=== PATIENT | female | born 1960 | race Caucasian/White ===

== ENCOUNTER 2018-03-06 23:23 | Emergency (ER) | payer MEDICARE ==
[~2018-03-06] VITALS: Ht 172.7 cm; Wt 122.7 kg
[2018-03-07 01:36] VITALS: BP 155/87
== END 2018-03-07 01:39 | disposition home or self-care (01) ==
LOC: ER 23:24
DX: M19.071 Primary osteoarthritis, right ankle and foot (principal); J45.909 Unspecified asthma, uncomplicated; Z88.1 Allergy status to other antibiotic agents; Z88.2 Allergy status to sulfonamides
CPT/HCPCS: 73630; 99284